=== PATIENT | male | born 1945 | race Caucasian/White ===

== ENCOUNTER 2019-02-25 11:17 | Emergency (ER) | payer MEDICARE, OTHER, SELFPAY ==
[2019-02-25 11:26] VITALS: BP 118/67; PULSE 82; RESP 14; TEMP 27.2; O2SAT 98
--- NOTE | 2019-02-25 13:39 | ED.EAR ---
HPI - Ear Problem <Apple Cazares PA-C - Last Filed: 02/25/19 20:46> General Chief complaint: Ear Stated complaint: Pain in both ears Time Seen by Provider: 02/25/19 13:03 Source: patient Mode of arrival: ambulatory Limitations: no limitations History of Present Illness HPI Narrative: This 73-year-old male comes to ED secondary to bilateral earache intermittently for about 1-1/2 months, worse on the right side for the last few days. He describes the pain as a sharp lancinating pain that comes and goes. He states this has been gradually worsening. He thinks ibuprofen might help a little bit. He states it was severe enough last night that he took an oxycodone left over from the dentist, that made him drowsy, maybe helped after about 40 minutes. He has chronic tinnitus which is unchanged. He denies any hearing loss. He denies any recent upper respiratory symptoms, sinus pain, sore throat, cough. He denies any fever. He denies any headache, jaw claudication or vision change. He states that sometimes he gets a little bit sore in his posterior neck cannot tell that this is correlated with ear pain. He denies any rashes or other new symptoms on systems review. Related Data Home Medications Medication Instructions Recorded Confirmed ibuprofen 600 mg PO Q8HR PRN 02/25/19 02/25/19 oxycodone 5 mg PO Q4-6H PRN 02/25/19 02/25/19 Allergies Allergy/AdvReac Type Severity Reaction Status Date / Time No Known Drug Allergies Allergy Verified 02/25/19 11:29 Review of Systems <Apple Cazares PA-C - Last Filed: 02/25/19 20:46> Review of Systems ROS Unobtainable: All systems reviewed & are unremarkable except as noted in HPI and below PFSH <Apple Cazares PA-C - Last Filed: 02/25/19 20:46> Medical History (Updated 02/25/19 @ 14:02 by Apple Cazares PA-C) Tinnitus (Chronic) H/O: HTN (hypertension) (Resolved) Hypertriglyceridemia (Resolved) Surgical History (Updated 02/25/19 @ 14:01 by Apple Cazares PA-C) No history of previous surgery (Chronic) Social History Smoking Status: Never smoker alcohol intake: current Social History Smoking Status: Never smoker alcohol intake: current Exam <Apple Cazares PA-C - Last Filed: 02/25/19 20:46> Narrative Exam Narrative: GENERAL APPEARANCE: Patient sitting comfortably, in no distress. HEAD: No sinus TTP. EYES: PERRL, EOMI. EARS: Normal auditory canals, TMS intact with normal light reflexes. ORAL CAVITY: Normal oropharynx. Dental or gum inflammation. No jaw tenderness, full range of motion THROAT: Clear. NECK/THYROID: Neck supple, full range of motion, no cervical lymphadenopathy. LUNGS: Clear to auscultation bilaterally, no cough on exam. HEART: RRR without murmur, nl S1, S2, no S3 or S4. DERMATOLOGIC: No erythema or exanthem MUSCULOSKELETAL: No tenderness over the cervical spine or spinal musculature, full active range of motion Initial Vital Signs Initial Vital Signs: Vital Signs Temperature 81 F L 02/25/19 11:26 Pulse Rate 82 02/25/19 11:26 Respiratory Rate 14 02/25/19 11:26 Blood Pressure 118/67 02/25/19 11:26 Pulse Oximetry 98 02/25/19 11:26 <Beverly Page DO - Last Filed: 02/26/19 07:13> Initial Vital Signs Initial Vital Signs: Vital Signs Temperature 81 F L 02/25/19 11:26 Pulse Rate 82 02/25/19 11:26 Respiratory Rate 14 02/25/19 11:26 Blood Pressure 118/67 02/25/19 11:26 Pulse Oximetry 98 02/25/19 11:26 Course <Apple Cazares PA-C - Last Filed: 02/25/19 20:46> Additional Information: Advised patient that I think this needs further workup, follow up with PCP and imaging/referral. It is chronic, more consistent with neuropathic type pain. Will try meloxicam since he thinks ibuprofen did help. He agrees to call human resource assistant for referral and return if any acute changes in the interim or new symptoms such as facial weakness, vision loss, etc Vital Signs - 8 hr 02/25/19 13:56 Pulse Rate 77 Respiratory Rate 15 Blood Pressure [Left Arm] 117/76 Pulse Oximetry 98 <Beverly Page DO - Last Filed: 02/26/19 07:13> Vital Signs - 8 hr 02/25/19 13:56 Pulse Rate 77 Respiratory Rate 15 Blood Pressure [Left Arm] 117/76 Pulse Oximetry 98 Discharge Plan Departure Patient Disposition: Home Clinical Impression: Otalgia, bilateral Discharge Date/Time: 02/25/19 14:14 Interventions: ED Discharge Assessment Last Done: 02/25/19 14:13 Instructions: DI for Ear Pain-Adult Activity Restrictions/Additional Instructions: On examination today you do not appear to have an ear infection. Since this pain has been off and on and chronic and given your description of it, I suspect that this may be nerve generated pain. Please try wggg-gzk-hnlbyes Aleve (naproxen), instead of your ibuprofen, 2 tablets every 12 hours for the next few days to see if this helps with pain. You can add Tylenol as needed. You can take your oxycodone if you need to but remember this did seem to make you drowsy and you should not drive. Please call the hospital home coordinator at [phone] and let them know you were seen in the emergency room and we would like to have you follow-up with a primary care provider next week as this needs further testing and possibly a referral. As we talked about, you should return if you have acutely worsening symptoms or new symptoms in the interim such as fever, vision change, swelling or more persistent pain Prescriptions: No Action oxycodone 5 mg Capsule 5 mg PO Q4-6H PRN (Reason: Pain (Scale Score 7-10)) RF: 0 ibuprofen 200 mg Tablet 600 mg PO Q8HR PRN (Reason: Pain (Scale Score 4-6)) RF: 0 <Beverly Page DO - Last Filed: 02/26/19 07:13> Cosign ED Attending Abdi Attestation: I was immediately available in the department for consultation. Documentation has been reviewed. I agree with assessment and plan.
[2019-02-25 13:56] VITALS: BP 117/76; PULSE 77; RESP 15; O2SAT 98
--- NOTE | 2019-02-25 14:06 | ED_ITS ---
HPI - Ear Problem <Apple Cazares PA-C - Last Filed: 02/25/19 20:46> General Chief complaint: Ear Stated complaint: Pain in both ears Time Seen by Provider: 02/25/19 13:03 Source: patient Mode of arrival: ambulatory Limitations: no limitations History of Present Illness HPI Narrative: This 73-year-old male comes to ED secondary to bilateral earache intermittently for about 1-1/2 months, worse on the right side for the last few days. He describes the pain as a sharp lancinating pain that comes and goes. He states this has been gradually worsening. He thinks ibuprofen might help a l ittle bit. He states it was severe enough last night that he took an oxycodone left over from the dentist, that made him drowsy, maybe helped after about 40 minutes. He has chronic tinnitus which is unchanged. He denies any hearing loss. He denies any recent upper respiratory symptoms, sinus pain, sore throat, cough. He denies any fever. He denies any headache, jaw claudication or vision change. He states that sometimes he gets a little bit sore in his posterior neck cannot tell that this is correlated with ear pain. He denies any rashes or other new symptoms on systems review. Related Data Home Medications Medication Instructions Recorded Confirmed ibuprofen 600 mg PO Q8HR PRN 02/25/19 02/25/19 oxycodone 5 mg PO Q4-6H PRN 02/25/19 02/25/19 Allergies Allergy/AdvReac Type Severity Reaction Status Date / Time No Known Drug Allergies Allergy Verified 02/25/19 11:29 Review of Systems <Apple Cazares PA-C - Last Filed: 02/25/19 20:46> Review of Systems ROS Unobtainable: All systems reviewed & are unremarkable except as noted in HPI and below PFSH <Apple Cazares PA-C - Last Filed: 02/25/19 20:46> Medical History (Updated 02/25/19 @ 14:02 by Apple Cazares PA-C) Tinnitus (Chronic) H/O: HTN (hypertension) (Resolved) Hypertriglyceridemia (Resolved) Surgical History (Updated 02/25/19 @ 14:01 by Apple Cazares PA-C) No history of previous surgery (Chronic) Social History Smoking Status: Never smoker alcohol intake: current Social History Smoking Status: Never smoker alcohol intake: current Exam <Apple Cazares PA-C - Last Filed: 02/25/19 20:46> Narrative Exam Narrative: GENERAL APPEARANCE: Patient sitting comfortably, in no distress. HEAD: No sinus TTP. EYES: PERRL, EOMI. EARS: Normal auditory canals, TMS intact with normal light reflexes. ORAL CAVITY: Normal oropharynx. Dental or gum inflammation. No jaw tenderness, full range of motion THROAT: Clear. NECK/THYROID: Neck supple, full range of motion, no cervical lymphadenopathy. LUNGS: Clear to auscultation bilaterally, no cough on exam. HEART: RRR without murmur, nl S1, S2, no S3 or S4. DERMATOLOGIC: No erythema or exanthem MUSCULOSKELETAL: No tenderness over the cervical spine or spinal musculature, full active range of motion Initial Vital Signs Initial Vital Signs: Vital Signs Temperature 81 F L 02/25/19 11:26 Pulse Rate 82 02/25/19 11:26 Respiratory Rate 14 02/25/19 11:26 Blood Pressure 118/67 02/25/19 11:26 Pulse Oximetry 98 02/25/19 11:26 <Beverly Page DO - Last Filed: 02/26/19 07:13> Initial Vital Signs Initial Vital Signs: Vital Signs Temperature 81 F L 02/25/19 11:26 Pulse Rate 82 02/25/19 11:26 Respiratory Rate 14 02/25/19 11:26 Blood Pressure 118/67 02/25/19 11:26 Pulse Oximetry 98 02/25/19 11:26 Course <Apple Cazares PA-C - Last Filed: 02/25/19 20:46> Additional Information: Advised patient that I think this needs further workup, follow up with PCP and imaging/referral. It is chronic, more consistent with neuropathic type pain. Will try meloxicam since he thinks ibuprofen did help. He agrees to call human resource intern for referral and return if any acute changes in the interim or new symptoms such as facial weakness, vision loss, etc Vital Signs - 8 hr 02/25/19 13:56 Pulse Rate 77 Respiratory Rate 15 Blood Pressure [Left Arm] 117/76 Pulse Oximetry 98 <Beverly Page DO - Last Filed: 02/26/19 07:13> Vital Signs - 8 hr 02/25/19 13:56 Pulse Rate 77 Respiratory Rate 15 Blood Pressure [Left Arm] 117/76 Pulse Oximetry 98 Discharge Plan Departure Patient Disposition: Home Clinical Impression: Otalgia, bilateral Discharge Date/Time: 02/25/19 14:14 Interventions: ED Discharge Assessment Last Done: 02/25/19 14:13 Instructions: DI for Ear Pain-Adult Activity Restrictions/Additional Instructions: On examination today you do not appear to have an ear infection. Since this pain has been off and on and chronic and given your description of it, I suspect that this may be nerve generated pain. Please try rajo-roo-ymmwnxa Aleve (naproxen), instead of your ibuprofen, 2 tablets every 12 hours for the next few days to see if this helps with pain. You can add Tylenol as needed. You can take your oxycodone if you need to but remember this did seem to make you drowsy and you should not drive. Please call the hospital campus recruiting coordinator at [phone] and let them know you were seen in the emergency room and we would like to have you follow-up with a primary care provider next week as this needs further testing and possibly a referral. As we talked about, you should return if you have acutely worsening symptoms or new symptoms in the interim such as fever, vision change, swelling or more persistent pain Prescriptions: No Action oxycodone 5 mg Capsule 5 mg PO Q4-6H PRN (Reason: Pain (Scale Score 7-10)) RF: 0 ibuprofen 200 mg Tablet 600 mg PO Q8HR PRN (Reason: Pain (Scale Score 4-6)) RF: 0 <Beverly Page DO - Last Filed: 02/26/19 07:13> Cosign ED Attending Abdi Attestation: I was immediately available in the department for consultation. Documentation has been reviewed. I agree with assessment and plan.
== END 2019-02-25 14:14 | disposition home or self-care (01) ==
PROVIDERS: Emergency Provider Internal Medicine
DX: H92.03 Otalgia, bilateral (principal)
CPT/HCPCS: 99282

== ENCOUNTER 2019-03-04 15:41 | Emergency (ER) | payer MEDICARE, OTHER, SELFPAY ==
[2019-03-04 15:45] VITALS: BP 145/81; PULSE 88; RESP 97; TEMP 36.7; O2SAT 97; BMI 26.1
--- NOTE | 2019-03-04 15:54 | PC.NURSE ---
Pt states My hair hurts.
[2019-03-04 17:08] LABS: Add Manual Diff / Slide Review NO; Basophils Absolute Auto 100 /uL (0-100); Basophils Percent Auto 0.6 % (0-2); Eosinophils Absolute Auto 400 /uL (0-450); Eosinophils Percent Auto 3.6 % (2-4); Hematocrit 44.8 % (41-53); Hemoglobin 15.8 g/dL (13.5-17.5); Lymphocytes Absolute Auto 3000 /uL (1100-4500); Lymphocytes Percent Auto 29.4 % (25-40); Mean Corpuscular HGB Conc 35.3 % (30-36); Mean Corpuscular Hemoglobin 30.8 PG (26-34); Mean Corpuscular Volume 87.1 fL (80-100); Monocytes Absolute Auto 900 /uL (0-900); Monocytes Percent Auto 8.4 % (3-14); Neutrophils Absolute Auto 6000 /uL (1500-7000); Platelet Count 182 X10^3/uL (150-400); Red Blood Cell Count 5.14 X10^6/uL (4.5-5.9); Red Cell Distribution Width 13.3 % (11.6-14.8); White Blood Cell Count 10.3 X10^3/uL (4.5-11.0)
--- NOTE | 2019-03-04 17:09 | ED_ITS ---
HPI - Ear Problem <Apple Cazares PA-C - Last Filed: 03/04/19 20:54> General Chief complaint: Ear Stated complaint: Neck pain, chills, aches, weakness Time Seen by Provider: 03/04/19 16:02 Source: patient Mode of arrival: ambulatory Limitations: no limitations History of Present Illness HPI Narrative: This 73-year-old male returns to ED with persistent pain in his ear, more on the right side than the left. He states he can feel this in his neck at times as well. He denies headache or vision change. He states his ear hurts when he swallows and chews, but he has no jaw pain. He denies any nausea or vomiting. He denies any fever. He states in general he feels somewhat weak and tired, denies any new upper respiratory symptoms, cough, chest pain or dyspnea. Denies any abdominal pain or vomiting. He denies any paresthesia, weakness or swelling in his extremities. No new exposures. He states symptoms have not changed since his visit here not getting better. States he has continued some naproxen which might help a little bit. He does not think Tylenol helped. He has not taken oxycodone again. He states that he did see a chiropractor and thinks maybe this helped a little bit with his sore neck muscles, but no change in the ear pain. He describes this as sharp, ofelia cinating, tingling type pain unchanged from previous visit. Related Data Home Medications Medication Instructions Recorded Confirmed ibuprofen 600 mg PO Q8HR PRN 02/25/19 03/04/19 oxycodone 5 mg PO Q4-6H PRN 02/25/19 02/25/19 Previous Rx's Medication Instructions Recorded gabapentin 200 mg PO Q8H #20 cap 03/04/19 Allergies Allergy/AdvReac Type Severity Reaction Status Date / Time No Known Drug Allergies Allergy Verified 02/25/19 11:29 Review of Systems <Apple Cazares PA-C - Last Filed: 03/04/19 20:54> Review of Systems ROS Unobtainable: All systems reviewed & are unremarkable except as noted in HPI and below PFSH <TATIANA Davis Last Filed: 03/04/19 20:54> Medical History Tinnitus (Chronic) H/O: HTN (hypertension) (Resolved) Hypertriglyceridemia (Resolved) Surgical History (Updated 02/25/19 @ 14:01 by Apple Cazares PA-C) No history of previous surgery (Chronic) Social History Smoking Status: Never smoker alcohol intake: current Social History Smoking Status: Never smoker alcohol intake: current Exam <Apple Cazares PA-C - Last Filed: 03/04/19 20:54> Narrative Exam Narrative: GENERAL APPEARANCE: Patient sitting comfortably, in no distress. HEAD: No sinus TTP. No mastoid TTP. No maxillary or mandibular TTP EYES: PERRL, EOMI. EARS: Normal auditory canals, TMS intact with some milky cloudiness on the R., L. slightly injected ORAL CAVITY: Normal oropharynx THROAT: PND noted NECK/THYROID: Neck supple, full range of motion, no cervical lymphadenopathy. LUNGS: Clear to auscultation bilaterally, no cough on exam. HEART: RRR without murmur, nl S1, S2, no S3 or S4. DERMATOLOGIC: No erythema or exanthem MUSCULOSKELETAL: No tenderness over the cervical spine or spinal musculature, full active range of motion Initial Vital Signs Initial Vital Signs: Vital Signs Temperature 98.0 F 03/04/19 15:45 Pulse Rate 88 03/04/19 15:45 Respiratory Rate 97 H 03/04/19 15:45 Blood Pressure 145/81 H 03/04/19 15:45 Pulse Oximetry 97 03/04/19 15:45 <Hannah Gill DO - Last Filed: 03/05/19 07:30> Initial Vital Signs Initial Vital Signs: Vital Signs Temperature 98.0 F 03/04/19 15:45 Pulse Rate 88 03/04/19 15:45 Respiratory Rate 97 H 03/04/19 15:45 Blood Pressure 145/81 H 03/04/19 15:45 Pulse Oximetry 97 03/04/19 15:45 Course <Apple Cazares PA-C - Last Filed: 03/04/19 20:54> Additional Information: Patient has persistent bilateral ear pain, right greater than left. He denies any vision change, jaw claudication, new fever. He denies any acutely worsening symptoms since his last visit here, however has not obtained an appointment with new PCP so he can get further workup. I did give a prescription for gabapentin to try over the weekend. Warned about drowsiness and he stated he would not be driving. I was able to obtain an appointment for him on Thursday with Dr. Yeny Alatorre. He agreed to return over the weekend if any acutely worsening symptoms Orders Ordered: ED Orders 03/04/19 17:01 C-Reactive Protein Quant Stat Complete Blood Count AUTO DIFF Stat Comprehensive Metabolic Panel Stat Erythrocyte Sedimentation Rate Stat Vital Signs - 8 hr 03/04/19 15:45 03/04/19 17:22 03/04/19 18:28 Temperature 98.0 F Pulse Rate 88 78 74 Respiratory Rate 97 H 18 Blood Pressure 145/81 H 121/77 Blood Pressure [Right Arm] 140/80 Pulse Oximetry 97 96 99 <Hannah Gill DO - Last Filed: 03/05/19 07:30> Orders Ordered: ED Orders 03/04/19 17:01 C-Reactive Protein Quant Stat Complete Blood Count AUTO DIFF Stat Comprehensive Metabolic Panel Stat Erythrocyte Sedimentation Rate Stat Vital Signs - 8 hr 03/04/19 15:45 03/04/19 17:22 03/04/19 18:28 Temperature 98.0 F Pulse Rate 88 78 74 Respiratory Rate 97 H 18 Blood Pressure 145/81 H 121/77 Blood Pressure [Right Arm] 140/80 Pulse Oximetry 97 96 99 Medical Decision Making <Apple Cazares PA-C - Last Filed: 03/04/19 20:54> Lab Data Lab results reviewed: Yes I reviewed the patient's lab results. Result diagrams: 03/04/19 17:01 03/04/19 17:01 Lab Results 03/04/19 03/04/19 Range/Units 17:01 17:01 WBC 10.3 (4.5-11.0) X10^3/uL RBC 5.14 (4.5-5.9) X10^6/uL Hgb 15.8 (13.5-17.5) g/dL Hct 44.8 (41-53) % MCV 87.1 (80-100) fL MCH 30.8 (26-34) PG MCHC 35.3 (30-36) % RDW 13.3 (11.6-14.8) % Plt Count 182 (150-400) X10^3/uL Neut % (Auto) 58.0 (50-75) % Lymph % (Auto) 29.4 (25-40) % [place] % (Auto) 8.4 (3-14) % Eos % (Auto) 3.6 (2-4) % Baso % (Auto) 0.6 (0-2) % Neut # (Auto) 6000 (8572-5370) /uL Lymph # (Auto) 3000 (5716-0392) /uL [place] # (Auto) 900 (0-900) /uL Eos # (Auto) 400 (0-450) /uL Baso # (Auto) 100 (0-100) /uL ESR 5 (0-15) MM/HR Sodium 137 (137-145) mmol/L Potassium 4.8 (3.4-5.1) mmol/L Chloride 98 (98-107) mmol/L Carbon Dioxide 25 (22-32) mmol/L BUN 23 H (9-20) mg/dL Creatinine 1.00 (0.66-1.25) mg/dL Estimated GFR > 60.0 (>60) mL/min BUN/Creatinine Ratio 23.0 H (6-22) Glucose 101 (80-110) mg/dL Calcium 9.7 (8.4-10.2) mg/dL Total Bilirubin 1.3 (0.2-1.3) mg/dL AST 22 (17-59) IU/L ALT 15 L (21-72) IU/L Alkaline Phosphatase 37 L (38-126) U/L C-Reactive Protein < 0.5 (<1.0) mg/dL Total Protein 8.0 (6.3-8.2) g/dL Albumin 4.7 (3.5-5.0) g/dL Globulin 3.3 (1.7-4.1) g/dL Albumin/Globulin Ratio 1.4 (1.0-2.8) <Hannah Gill, DO - Last Filed: 03/05/19 07:30> Lab Data Lab Results 03/04/19 03/04/19 Range/Units 17:01 17:01 WBC 10.3 (4.5-11.0) X10^3/uL RBC 5.14 (4.5-5.9) X10^6/uL Hgb 15.8 (13.5-17.5) g/dL Hct 44.8 (41-53) % MCV 87.1 (80-100) fL MCH 30.8 (26-34) PG MCHC 35.3 (30-36) % RDW 13.3 (11.6-14.8) % Plt Count 182 (150-400) X10^3/uL Neut % (Auto) 58.0 (50-75) % Lymph % (Auto) 29.4 (25-40) % [place] % (Auto) 8.4 (3-14) % Eos % (Auto) 3.6 (2-4) % Baso % (Auto) 0.6 (0-2) % Neut # (Auto) 6000 (4089-9122) /uL Lymph # (Auto) 3000 (7345-1189) /uL [place] # (Auto) 900 (0-900) /uL Eos # (Auto) 400 (0-450) /uL Baso # (Auto) 100 (0-100) /uL ESR 5 (0-15) MM/HR Sodium 137 (137-145) mmol/L Potassium 4.8 (3.4-5.1) mmol/L Chloride 98 (98-107) mmol/L Carbon Dioxide 25 (22-32) mmol/L BUN 23 H (9-20) mg/dL Creatinine 1.00 (0.66-1.25) mg/dL Estimated GFR > 60.0 (>60) mL/min BUN/Creatinine Ratio 23.0 H (6-22) Glucose 101 (80-110) mg/dL Calcium 9.7 (8.4-10.2) mg/dL Total Bilirubin 1.3 (0.2-1.3) mg/dL AST 22 (17-59) IU/L ALT 15 L (21-72) IU/L Alkaline Phosphatase 37 L (38-126) U/L C-Reactive Protein < 0.5 (<1.0) mg/dL Total Protein 8.0 (6.3-8.2) g/dL Albumin 4.7 (3.5-5.0) g/dL Globulin 3.3 (1.7-4.1) g/dL Albumin/Globulin Ratio 1.4 (1.0-2.8) Discharge Plan Departure Patient Disposition: Home Clinical Impression: Otalgia, bilateral, Neuropathic pain Discharge Date/Time: 03/04/19 18:29 Interventions: ED Discharge Assessment Last Done: 03/04/19 18:28 Instructions: Neuropathic Pain Activity Restrictions/Additional Instructions: I still suspect that the pain you are having mainly in your right ear is due to some type of nerve inflammation or irritation. As we talked about, you need further imaging and testing for this and may need a referral to a specialist. I have scheduled you for an appointment with Dr. Yeny Alatorre on Thursday, March 07, 2:00 p.m. check in. Please be on time so you can fill out new patient paperwork. In the interim, I have prescribed a medicine called gabapentin for you to try. This medicine can make you sleepy as we talked about, so do not drive or do other activities were you need to be alert while taking it. As we talked about over the weekend, you should return if you have any acutely worsening symptoms or new symptoms such as fever, headache, or vision change Prescriptions: New gabapentin 100 mg capsule 200 mg PO Q8H Qty: 20 RF: 0 No Action oxycodone 5 mg Capsule 5 mg PO Q4-6H PRN (Reason: Pain (Scale Score 7-10)) RF: 0 ibuprofen 200 mg Tablet 600 mg PO Q8HR PRN (Reason: Pain (Scale Score 4-6)) RF: 0 Referrals: Yeny Alatorre MD [Physician] - <Hannah Gill DO - Last Filed: 03/05/19 07:30> Cosign ED Attending Roniature Attestation: I was immediately available in the department for consultation. This documentation has been reviewed and I agree with assessment and plan. Supervised by Hannah Gill DO
[2019-03-04 17:20] LABS: Alanine Aminotransferase 15 IU/L (21-72); Albumin 4.7 g/dL (3.5-5.0); Albumin Globulin Ratio 1.4 (1.0-2.8); Alkaline Phosphatase 37 U/L (38-126); Aspartate Aminotransferase 22 IU/L (17-59); Bilirubin Total 1.3 mg/dL (0.2-1.3); Blood Urea Nitrogen 23 mg/dL (9-20); Calcium 9.7 mg/dL (8.4-10.2); Carbon Dioxide 25 mmol/L (22-32); Chloride 98 mmol/L (98-107); Estimated Glomerular Filt Rate > 60.0 mL/min (>60); Globulin 3.3 g/dL (1.7-4.1); Glucose 101 mg/dL (80-110); HEMOLYSIS 19 (0-50); Potassium 4.8 mmol/L (3.4-5.1); Sodium 137 mmol/L (137-145)
[2019-03-04 17:22] VITALS: BP 140/80; PULSE 78; RESP 18; O2SAT 96
[2019-03-04 17:39] LABS: C-Reactive Protein Quant < 0.5 mg/dL (<1.0); Erythrocyte Sedimentation Rate 5 MM/HR (0-15)
[2019-03-04 18:28] VITALS: BP 121/77; PULSE 74; O2SAT 99
== END 2019-03-04 18:29 | disposition home or self-care (01) ==
PROVIDERS: Emergency Provider Internal Medicine
DX: H92.03 Otalgia, bilateral (principal); M79.2 Neuralgia and neuritis, unspecified
CPT/HCPCS: 36415; 80053; 85025; 85651; 86140; 99282; 99283

== ENCOUNTER 2019-06-03 09:01 | Emergency (ER) | payer MEDICARE, OTHER, SELFPAY ==
[2019-06-03 09:10] VITALS: BP 147/79; PULSE 74; RESP 14; TEMP 36.6; O2SAT 99; BMI 27.7
--- NOTE | 2019-06-03 09:15 | ED_ITS ---
HPI - Chest Pain General Chief Complaint: Chest Pain Stated Complaint: CHEST PAIN THURSDAY Time Seen by Provider: 06/03/19 09:02 Source: patient Mode of arrival: Ambulatory Limitations: no limitations History of Present Illness HPI narrative: 74-year-old male nonsmoker with history of hypertension presents with a chief complaint of some left-sided chest pain which has been present since Thursday. He states the pain is sharp and stabbing and worse with palpation and deep breath. He states that he recently had upper respiratory symptoms including runny nose, sore throat and cough but those are largely resolved. A dditionally states sometimes there is worsening pain when he lies flat. He been chopping wood much of the week and states this does not seem to worsen the pain. He denies cardiac equivalent such as dizziness, weakness or lightheadedness. He denies shortness of breath, nausea, vomiting or radiation of the pain. He denies any recent travel or history of the same. MD complaint: chest pain Onset (ago): day(s) Duration: constant Onset: during rest Pain location: left chest Severity: mild Quality: sharp Pain radiation: none Relieving factors: rest Exacerbating factors: inspiration, palpation and movement Context: recent illness Treatments prior to arrival chest pain: none Related Data Home Medications Medication Instructions Recorded Confirmed No Known Home Medications 06/03/19 06/03/19 Allergies Allergy/AdvReac Type Severity Reaction Status Date / Time No Known Drug Allergies Allergy Verified 06/03/19 09:29 Review of Systems Constitutional Constitutional: Denies chills, Denies fatigue, Denies fever(s), Denies frequent falls, Denies lethargy and Denies weakness Eyes Eyes: Denies change in vision, Denies eye discharge, Denies irritation and Denies loss of vision ENT Ears, Nose, Mouth, and Throat: Denies change in voice, Denies dizziness, Denies neck pain, Denies sore throat and Denies throat swelling Cardiovascular Cardiovascular: Reports chest pain, Denies irregular heart rhythm, Denies lightheadedness, Denies palpitations, Denies dyspnea, Denies dyspnea on exertion and Denies orthopnea Respiratory Respiratory: Denies cough, Reports pain on inspiration, Denies dyspnea, Denies dyspnea on exertion and Denies wheezing Gastrointestinal Gastrointestinal: Denies abdominal pain, Denies change in bowel habits, Denies diarrhea, Denies nausea and Denies vomiting Genitourinary Genitourinary: Denies hematuria, Denies flank pain, Denies urinary incontinence and Denies urinary urgency Musculoskeletal Musculoskeletal: Denies back pain, Denies muscle weakness, Denies neck pain, Denies numbness and Denies tingling Integumentary/Breasts Skin/Breast: Denies pruritus, Denies erythema, Denies rash and Denies wounds Neurologic Neurologic: Denies behavioral changes, Denies confusion, Denies dizziness, Karri es frequent falls, Denies loss of vision, Denies numbness, Denies tingling and Denies weakness Psychiatric Psychiatric: Denies anxiety, Denies behavioral changes, Denies confusion, Denies depression, Denies homicidal ideation and Denies suicidal ideation Endocrine Endocrine: Denies fatigue, Denies flushing and Denies palpitations Hematologic/Lymphatic Hematologic/Lymphatic: Denies easy bruising Allergic/Immunologic Allergic/Immunologic: Denies urticaria, Denies throat swelling and Denies wheezing Exam Narrative Exam Narrative: GENERAL: [74] year old patient appears stated age. Well-nourishe d, well-developed patient, in mild distress. HEAD: Atraumatic. Normocephalic. EYES: Pupils equal round and reactive. Extraocular motions intact. No scleral icterus. No injection or drainage. ENT: Nose without bleeding, purulent drainage. Throat without erythema, tonsillar hypertrophy or exudate. Airway patent. NECK: Trachea midline. Non tender CARDIOVASCULAR: Regular rate and rhythm without murmurs, gallops, or rubs. Anterior chest tender to palpation RESPIRATORY: Clear to auscultation. Breath sounds equal bilaterally. No wheezes, rales, or rhonchi. GASTROINTESTINAL: Abdomen soft, non-tender, nondistended. EXTREMITIES: No edema or joint tenderness. BACK: Nontender without deformity or crepitance. No flank tenderness. NEURO: AOx3. SKIN: No rash or erythema of visible areas Initial Vital Signs Initial Vital Signs: Vital Signs Temperature 97.9 F 06/03/19 09:10 Pulse Rate 74 06/03/19 09:10 Respiratory Rate 14 06/03/19 09:10 Blood Pressure 147/79 H 06/03/19 09:10 Pulse Oximetry 99 06/03/19 09:10 Scores HEART Score Heart Score history: Slightly Suspicious Heart Score EKG: Normal Heart Score Age: > or = 65 years old Heart Score risk factors: 1-2 risk factors Heart Score troponin: < or = to normal limit Heart Score Total: 3 Course Orders Ordered: Discontinued Medications Al Hydrox/Mg Hydrox/Simethicone 20 ml/ Lidocaine HCl 15 ml 0 ml PO NOW ONE Stop: 06/03/19 10:24 Last Admin: 06/03/19 11:17 Dose: 35 ml Documented by: PATIENCE Pantoprazole Sodium (Protonix) 40 mg IV NOW ONE Stop: 06/03/19 10:24 Last Admin: 06/03/19 11:18 Dose: 40 mg Documented by: PATIENCE Vital Signs Vital signs: Vital Signs - 8 hr 06/03/19 12:04 06/03/19 12:24 06/03/19 12:26 Pulse Rate 85 78 78 Respiratory Rate 24 18 18 Blood Pressure 128/82 Blood Pressure [Left Arm] 128/82 128/82 Pulse Oximetry 97 98 98 MDM - Chest Pain Lab Data Result diagrams: 06/03/19 09:19 06/03/19 09:48 Labs: Lab Results 06/03/19 06/03/19 06/03/19 Range/Units 09: 09:48 09:49 WBC 10.0 (4.5-11.0) X10^3/uL RBC 4.96 (4.5-5.9) X10^6/uL Hgb 15.2 (13.5-17.5) g/dL Hct 44.5 (41-53) % MCV 89.7 (80-100) fL MCH 30.7 (26-34) PG MCHC 34.2 (30-36) % RDW 13.4 (11.6-14.8) % Plt Count 188 (150-400) X10^3/uL Neut % (Auto) 68.2 (50-75) % Lymph % (Auto) 20.3 L (25-40) % [place] % (Auto) 9.3 (3-14) % Eos % (Auto) 1.7 L (2-4) % Baso % (Auto) 0.5 (0-2) % Neut # (Auto) 6800 (4172-1849) /uL Lymph # (Auto) 2000 (5956-2720) /uL [place] # (Auto) 900 (0-900) /uL Eos # (Auto) 200 (0-450) /uL Baso # (Auto) 100 (0-100) /uL PT 11.4 (10.1-12.7) SECONDS INR 1.0 (0.9-1.3) APTT 31 (26.4-36.2) SECONDS Sodium 143 (137-145) mmol/L Potassium 4.9 (3.4-5.1) mmol/L Chloride 101 (98-107) mmol/L Carbon Dioxide 30 (22-32) mmol/L BUN 16 (9-20) mg/dL Creatinine 0.80 (0.66-1.25) mg/dL Estimated GFR > 60.0 (>60) mL/min BUN/Creatinine Ratio 20.0 (6-22) Glucose 119 H (80-110) mg/dL Calcium 9.7 (8.4-10.2) mg/dL Total Bilirubin 0.7 (0.2-1.3) mg/dL AST 24 (17-59) IU/L ALT 19 L (21-72) IU/L Alkaline Phosphatase 39 (38-126) U/L Total Creatine Kinase 60 (55-170) U/L CK-MB (CK-2) TNP CK-MB (CK-2) Rel Index TNP Troponin I < 0.012 (0.01-0.034) ng/mL Total Protein 7.7 (6.3-8.2) g/dL Albumin 4.7 (3.5-5.0) g/dL Globulin 3.0 (1.7-4.1) g/dL Albumin/Globulin Ratio 1.6 (1.0-2.8) Lipase 75 (23-300) U/L Imaging Data Chest x-ray: Radiologist's impression: Chart Viewer Diagnostics DATE TYPE STATUS AUTHOR Hx 06/03/19 09:25 MoreliaJose Martin Jimi Lopezbrice Mckeon 74, M0 1945 DEP ER, [facility] 172.72cm 82.735kg BMI: 27.7kg/m? Chest Pain Search Chart No Data to Display ONSET Today 12:26 Lopez,Jeffrey Mckeon 74 M [address] [address] XRay Report Signed Patient: Jeffrey Lopez EMR#: [id number] : 3Acct:[id number] Age/Sex: 74 / MDate of Service: 06/03/19 Loc: ED Accession Number: [id number] Procedure: XR chest 1V Ordering Provider: Jesus Frye D.O. PROCEDURE: XR CHEST 1V INDICATIONS: chest pain TECHNIQUE: One view of the chest was acquired. COMPARISON: [facility], CHEST 1 VIEW, 03/23/2010, 19:58. FINDINGS: Surgical changes and devices: None. Lungs and pleura: Lungs are clear. No pleural effusions or pneumothorax. Mediastinum: Mediastinal contours appear normal. Heart size is normal. Bones and chest wall: No suspicious bony lesions. Overlying soft tissues appear unremarkable. IMPRESSION: No acute cardiopulmonary disease. Dictated by: Kym Thibodeaux M.D. on 06/03/2019 at 10:43 Approved by: Kym Thibodeaux M.D. on 06/03/2019 at 10:44 [facility] Narrative Medical decision making narrative: Multiple etiologies for patient's symptoms considered including: [Cardiac ischemia versus costochondritis versus other] Patient's symptoms improved or duration of stay with above-stated therapies. Findings and discharge diagnosis discussed with patient/family followed by verbalization of understanding Return precautions discussed with patient/family whom verbalize understanding. Discharge Plan Departure Patient Disposition: Home Clinical Impression: Atypical chest pain Discharge Date/Time: 06/03/19 12:26 Instructions: DI for Atypical Chest Pain Activity Restrictions/Additional Instructions: *You have been diagnosed with [atypical chest pain] *What to do: *Take medications as directed *Follow up with your primary care provider in 2-3 days, call for an appointment. Let them know you were seen in the Emergency Department and that we ask that you be seen in follow up *Return to ER if you should have any new, worsening or concerning symptoms Prescriptions: No Action No Known Home Medications RF: 0
--- NOTE | 2019-06-03 09:25 | DI.RAD.S_ITS ---
PROCEDURE: XR CHEST 1V INDICATIONS: chest pain TECHNIQUE: One view of the chest was acquired. COMPARISON: [facility], , CHEST 1 VIEW, 03/23/2010, 19:58. FINDINGS: Surgical changes and devices: None. Lungs and pleura: Lungs are clear. No pleural effusions or pneumothorax. Mediastinum: Mediastinal contours appear normal. Heart size is normal. Bones and chest wall: No suspicious bony lesions. Overlying soft tissues appear unremarkable. IMPRESSION: No acute cardiopulmonary disease. Dictated by: Kym Thibodeaux M.D. on 06/03/2019 at 10:43 Approved by: Kym Thibodeaux M.D. on 06/03/2019 at 10:44
[2019-06-03 09:30] VITALS: BP 124/73; PULSE 73; RESP 18; O2SAT 99
[2019-06-03 09:30] LABS: Add Manual Diff / Slide Review NO; Basophils Absolute Auto 100 /uL (0-100); Basophils Percent Auto 0.5 % (0-2); Eosinophils Absolute Auto 200 /uL (0-450); Eosinophils Percent Auto 1.7 % (2-4); Hematocrit 44.5 % (41-53); Hemoglobin 15.2 g/dL (13.5-17.5); Lymphocytes Absolute Auto 2000 /uL (1100-4500); Lymphocytes Percent Auto 20.3 % (25-40); Mean Corpuscular HGB Conc 34.2 % (30-36); Mean Corpuscular Hemoglobin 30.7 PG (26-34); Mean Corpuscular Volume 89.7 fL (80-100); Monocytes Absolute Auto 900 /uL (0-900); Monocytes Percent Auto 9.3 % (3-14); Neutrophils Absolute Auto 6800 /uL (1500-7000); Neutrophils Percent Auto 68.2 % (50-75); Platelet Count 188 X10^3/uL (150-400); Red Blood Cell Count 4.96 X10^6/uL (4.5-5.9); Red Cell Distribution Width 13.4 % (11.6-14.8)
[2019-06-03 10:16] LABS: Prothrombin Time 11.4 SECONDS (10.1-12.7)
[2019-06-03 10:19] LABS: PTT Partial Thromboplastin Tim 31 SECONDS (26.4-36.2)
[2019-06-03 10:24] LABS: Alanine Aminotransferase 19 IU/L (21-72); Albumin 4.7 g/dL (3.5-5.0); Albumin Globulin Ratio 1.6 (1.0-2.8); Alkaline Phosphatase 39 U/L (38-126); Aspartate Aminotransferase 24 IU/L (17-59); Bilirubin Total 0.7 mg/dL (0.2-1.3); Blood Urea Nitrogen 16 mg/dL (9-20); Calcium 9.7 mg/dL (8.4-10.2); Carbon Dioxide 30 mmol/L (22-32); Chloride 101 mmol/L (98-107); Creatine Kinase 60 U/L (55-170); Estimated Glomerular Filt Rate > 60.0 mL/min (>60); Glucose 119 mg/dL (80-110); HEMOLYSIS < 15 (0-50); Lipase 75 U/L (23-300); Potassium 4.9 mmol/L (3.4-5.1); Sodium 143 mmol/L (137-145); Total Protein 7.7 g/dL (6.3-8.2)
[2019-06-03 10:33] LABS: Troponin I < 0.012 ng/mL (0.01-0.034)
[2019-06-03] MEDS: MAG HYDROX/ALUMINUM/SIMETH SUS 20 ML, LIDOCAINE VISCOUS 2% 15 ML PO (11:17)
[2019-06-03] MEDS: PANTOPRAZOLE 40 MG VIAL IV (11:18)
[2019-06-03 11:24] VITALS: BP 141/86; PULSE 70; RESP 18; O2SAT 99
[2019-06-03 12:04] VITALS: BP 128/82; PULSE 85; RESP 24; O2SAT 97
[2019-06-03 12:24] VITALS: BP 128/82; PULSE 78; RESP 18; O2SAT 98
[2019-06-03 12:26] VITALS: BP 128/82; PULSE 78; RESP 18; O2SAT 98
== END 2019-06-03 12:26 | disposition home or self-care (01) ==
PROVIDERS: Emergency Provider Emergency Medicine
DX: R07.89 Other chest pain (principal)
CPT/HCPCS: 36415; 71045; 80053; 82550; 83690; 84484; 85025; 85610; 85730; 93005; 96374; 99283; 99285; C9113

== ENCOUNTER → 2019-10-19 08:47 | Outpatient (CLI) | payer MEDICARE, OTHER, SELFPAY ==
[2019-10-19 10:36] LABS: Blood Urea Nitrogen 18 mg/dL (9-20); Calcium 9.9 mg/dL (8.4-10.2); Carbon Dioxide 30 mmol/L (22-32); Chloride 103 mmol/L (98-107); Cholesterol 183 mg/dL (140-199); Estimated Glomerular Filt Rate > 60.0 mL/min (>60); Glucose 107 mg/dL (80-110); HDL Cholesterol 37 mg/dL (40-60); HEMOLYSIS < 15 (0-50); LDL Cholesterol Calculated 106 mg/dL (<100); Potassium 4.7 mmol/L (3.4-5.1); Sodium 142 mmol/L (137-145); Triglycerides 201 mg/dL (35-150)
== END ==
PROVIDERS: PCP Internal Medicine; Referring Provider Internal Medicine; Visit Provider Internal Medicine
DX: R73.01 Impaired fasting glucose (principal); E78.5 Hyperlipidemia, unspecified
CPT/HCPCS: 36415; 80048; 80061

== ENCOUNTER → 2020-05-14 07:52 | Outpatient (CLI) | payer MEDICARE, OTHER, SELFPAY ==
[2020-05-14 08:57] LABS: Alanine Aminotransferase 29 IU/L (<50); Aspartate Aminotransferase 34 IU/L (17-59); Cholesterol 156 mg/dL (140-199); HDL Cholesterol 35 mg/dL (40-60); LDL Cholesterol Calculated 83 mg/dL (<100); Triglycerides 189 mg/dL (35-150)
== END ==
PROVIDERS: PCP Internal Medicine; Referring Provider Internal Medicine; Visit Provider Internal Medicine
DX: E78.5 Hyperlipidemia, unspecified (principal)
CPT/HCPCS: 36415; 80061; 84450; 84460

== ENCOUNTER → 2020-05-23 15:46 | Outpatient (CLI) | payer MEDICARE, OTHER, SELFPAY ==
[2020-05-24 07:48] LABS: Hepatitis BE Antigen Negative (Negative)
[2020-05-24 16:48] LABS: HIV 1 & 2 Ab/Ag 4th Gen Combo NEGATIVE (NEGATIVE); Hep C Virus Ab w/Reflex Quant NEGATIVE s/c (NEGATIVE)
== END ==
PROVIDERS: PCP Internal Medicine; Referring Provider Physician Assistant; Visit Provider Physician Assistant
DX: Z00.8 Encounter for other general examination (principal)
CPT/HCPCS: 36415; 86803; 87350; 87389